=== PATIENT | female | born 1975 | race Caucasian/White ===

== ENCOUNTER 2017-09-16 13:24 | Emergency (ER) | payer MEDICAID ==
[2010-03-29 06:26] VITALS: BMI 29.8
== END 2017-09-16 17:21 | disposition home or self-care (01) ==
LOC: D.ER 13:24
DX: S39.012A Strain of muscle, fascia and tendon of lower back, initial encounter (principal); W19.XXXA Unspecified fall, initial encounter; Y93.89 Activity, other specified; Y92.89 Other specified places as the place of occurrence of the external cause

== ENCOUNTER 2019-08-23 14:27 | Emergency (ER) | payer MEDICAID ==
[~2019-08-23] VITALS: Ht 170.2 cm; Wt 96.4 kg
[2019-08-23 14:37] VITALS: Ht 170.2 cm; Wt 96.4 kg
[2019-08-23] MEDS ORDERED: NEURONTIN600 MG PO (14:39)
[2019-08-23] MEDS ORDERED: TRAZODONE HCL150 MG PO (14:40)
[2019-08-23] MEDS ORDERED: KLONOPIN1 MG PO (14:40)
[2019-08-23] MEDS ORDERED: ZANAFLEX4 MG PO (14:41)
[2019-08-23] MEDS ORDERED: CYMBALTA30 MG PO (14:42)
[2019-08-23] MEDS ORDERED: PREDNISONE20 MG PO (16:29)
[2019-08-23] MEDS ORDERED: CYCLOBENZAPRINE10 MG PO (16:29)
[2019-08-23] MEDS ORDERED: ULTRAM50 MG PO (16:29)
[2019-08-23 16:58] LABS: SPECIFIC GRAVITY 1.015 (1.005-1.020)
[2019-08-23 16:59] LABS: BILIRUBIN NEGATIVE (NEGATIVE); GLUCOSE NEGATIVE (NEGATIVE); KETONE NEGATIVE (NEGATIVE); NITRITE NEGATIVE (NEGATIVE); UROBILINOGEN NORMAL (NORMAL)
[2019-08-23 17:29] VITALS: BP 106/66
== END 2019-08-23 17:29 | disposition home or self-care (01) ==
LOC: D.ER 14:27
PROVIDERS: Emergency Medicine
DX: M75.42 Impingement syndrome of left shoulder (principal); M51.26 Other intervertebral disc displacement, lumbar region; R51 Headache; M54.32 Sciatica, left side

== ENCOUNTER 2019-10-25 13:40 | Emergency (ER) | payer MEDICAID ==
[~2019-10-25 13:40] MED LIST: CYCLOBENZAPRINE10 MG PO; CYMBALTA30 MG PO; KLONOPIN1 MG PO; NEURONTIN600 MG PO; PREDNISONE20 MG PO; TRAZODONE HCL150 MG PO; ULTRAM50 MG PO; ZANAFLEX4 MG PO
[2019-10-25 14:10] VITALS: Ht 170.2 cm
[2019-10-25] MEDS ORDERED: TORADOL10 MG PO (16:05)
[2019-10-25 17:10] VITALS: BP 132/74
== END 2019-10-25 17:11 | disposition home or self-care (01) ==
LOC: D.ER 13:40
DX: M51.26 Other intervertebral disc displacement, lumbar region (principal); G89.29 Other chronic pain; G58.8 Other specified mononeuropathies